=== PATIENT | female | born 1950 | race Caucasian/White ===

== ENCOUNTER 2018-09-20 08:48 | Outpatient (CLI) | payer MEDICARE, BC | END 2018-09-20 23:59 | disposition home or self-care (01) | LOC: CFH 08:48 | PROVIDERS: ATTEND Internal Medicine Cardiovascular Disease | DX: I35.1 Nonrheumatic aortic (valve) insufficiency (principal); E78.5 Hyperlipidemia, unspecified; I51.7 Cardiomegaly; Z96.89 Presence of other specified functional implants | CPT/HCPCS: 93306 ==